=== PATIENT | female | born 1940 | race Caucasian/White ===

== ENCOUNTER 2022-01-01 05:22 | Day surgery (SDC) | payer MEDICARE, MEDICAID ==
[~2022-01-01] VITALS: Ht 156.7 cm; Wt 80.0 kg
[~2022-01-01 05:22] MED LIST: AMLO10TA55 PO; APIX2.5T PO; AZEL6DRO5 OU; CARV6 PO; CLOP75TA32 PO; GABA-529 PO; INSLAN SQ; LATA2.5D14 OU; LINA5TAB PO; MINO2.5 PO; OMEP20CA13 PO; SERT-158 PO; SEVE800T17 PO; SIMV-43 PO
[2022-01-01] MEDS ORDERED: SODIUM CHLORIDE 0.9% 1,000 ML IV ONE (05:30)
[2022-01-01] MEDS ORDERED: SODIUM CHLORIDE 0.9% 1,000 ML ONE (06:39)
[2022-01-01] MEDS ORDERED: DIAZEPAM 5 MG TABLET ONE (06:40)
[2022-01-01] MEDS ORDERED: ASPIRIN 81 MG CHEWABLE TABLET ONE (06:40)
[2022-01-01] MEDS ORDERED: DiphenhydrAMINE HCL 50 MG CAPSULE ONE (06:40)
[2022-01-01] MEDS ORDERED: IOHEXOL 300 MG/ML 100 ML VIAL ONE (07:16)
[2022-01-01] MEDS ORDERED: IOHEXOL 300 MG/ML 150 ML VIAL ONE (07:16)
[2022-01-01] MEDS ORDERED: LIDOCAINE/PF 1% 30 ML VIAL ONE (07:16)
[2022-01-01] MEDS ORDERED: IOHEXOL 300 MG/ML 50 ML VIAL ONE (07:16)
[2022-01-01] MEDS ORDERED: SODIUM BICARBONATE 50 MEQ/50 ML VIAL ONE (07:16)
[2022-01-01] MEDS ORDERED: HEPARIN SODIUM 1000 UNITS/NS 1,000 ML ONE (07:17)
[2022-01-01 07:21] LABS: GLUCOMETER DEV NAME(LOC) SDS.; GLUCOSE,POINT OF CARE 152 MG/DL (70-110)
[2022-01-01] MEDS ORDERED: ASPIRIN 81 MG CHEWABLE TABLET PO ONE (07:30)
[2022-01-01] MEDS ORDERED: DIAZEPAM 5 MG TABLET PO ONE (07:30)
[2022-01-01] MEDS ORDERED: DiphenhydrAMINE HCL 50 MG CAPSULE PO ONE (07:30)
[2022-01-01 07:42] VITALS: BP 113/43
[2022-01-01] MEDS ORDERED: FentaNYL CITRATE PF 100 MCG/2 ML VIAL ONE (07:51)
[2022-01-01] MEDS ORDERED: MIDAZOLAM HCL 2 MG/2 ML VIAL ONE (07:51)
[2022-01-01] MEDS ORDERED: MIDAZOLAM HCL 2 MG/2 ML VIAL IVP ONE ×2 (08:30→09:00)
[2022-01-01] MEDS ORDERED: LIDOCAINE 1% 30 ML/SOD BICARB 8.4% 4 ML SQ ONE (08:30)
[2022-01-01] MEDS ORDERED: FentaNYL CITRATE PF 100 MCG/2 ML VIAL IVP ONE ×2 (08:30→09:00)
[2022-01-01] MEDS ORDERED: HEPARIN SODIUM 1000 UNITS/NS 1,000 ML IARTER ONE (08:30)
[2022-01-01] MEDS ORDERED: IOHEXOL 300 MG/ML 150 ML VIAL IARTER ONE (08:30)
[2022-01-01] MEDS ORDERED: PHENYLEPHRINE 200 MG/D5%-WATER 0 ML IV ONE (08:34)
[2022-01-01] MEDS ORDERED: TICAGRELOR 90 MG TABLET ONE ×2 (08:41→15:12)
[2022-01-01] MEDS ORDERED: HEPARIN SODIUM,PORCINE 5,000 UNITS/ML VIAL IVP ONE ×3 (08:45→09:30)
[2022-01-01] MEDS ORDERED: HEPARIN SODIUM 1000 UNITS/NS 500 ML ONE (08:47)
[2022-01-01 09:10] VITALS: BP 109/52
[2022-01-01] MEDS ORDERED: TICAGRELOR 90 MG TABLET PO ONE ×2 (09:15→16:00)
== END 2022-01-01 16:05 | disposition home or self-care (01) ==
LOC: CATHLAB 05:22
PROVIDERS: ATTEND Internal Medicine Interventional Cardiology
DX: I25.10 Atherosclerotic heart disease of native coronary artery without angina pectoris (principal); I12.9 Hypertensive chronic kidney disease with stage 1 through stage 4 chronic kidney disease, or unspecified chronic kidney disease; E11.22 Type 2 diabetes mellitus with diabetic chronic kidney disease; E11.51 Type 2 diabetes mellitus with diabetic peripheral angiopathy without gangrene; E78.5 Hyperlipidemia, unspecified; E66.9 Obesity, unspecified; N18.9 Chronic kidney disease, unspecified; I48.91 Unspecified atrial fibrillation; Z86.73 Personal history of transient ischemic attack (TIA), and cerebral infarction without residual deficits; Z90.710 Acquired absence of both cervix and uterus; Z98.890 Other specified postprocedural states; Z79.899 Other long term (current) drug therapy; Z88.0 Allergy status to penicillin
CPT/HCPCS: 82962; 92978; 93458; 99152; 99153; C1753; C1757; C1760; C1874; C1887; C9600; J1644; J2250; J3010; J3490 ×2; J7030; Q9967 ×3; 75960; 92928; J2370

== ENCOUNTER 2023-11-06 07:43 | Inpatient (IN) | payer MEDICARE, OTHER ==
[2023-11-06] VITALS (14 sets, daily range): BP systolic 105–145; BP diastolic 49–88; PULSE 61–96; RESP 20–23; TEMP 98.1–98.8
[~2023-11-06] VITALS: Ht 157.5 cm; Wt 70.8 kg
[~2023-11-06 07:43] MED LIST changes: +ASPIRIN 81 MG CHEWABLE TABLET PO ONE; -CLOP75TA32 PO; +DIAZEPAM 5 MG TABLET PO ONE; +DiphenhydrAMINE HCL 50 MG CAPSULE PO ONE; +MEGE40TA8 PO; -SEVE800T17 PO; +SEVE800T38 PO; +SODIUM CHLORIDE 0.9% 1,000 ML IV ONE; +TICA60TA PO; +TRAZ-252 PO
[2023-11-06] MEDS ORDERED: ASPIRIN 81 MG CHEWABLE TABLET ONE (09:58)
[2023-11-06] MEDS ORDERED: DiphenhydrAMINE HCL 50 MG CAPSULE ONE (09:58)
[2023-11-06] MEDS ORDERED: SODIUM CHLORIDE 0.9% 1,000 ML ONE (09:58)
[2023-11-06] MEDS ORDERED: DIAZEPAM 5 MG TABLET ONE (09:58)
[2023-11-06 11:41] LABS: GLUCOMETER DEV NAME(LOC) SDS.; GLUCOSE,POINT OF CARE 221 MG/DL (70-110)
[2023-11-06] MEDS ORDERED: LIDOCAINE/PF 1% 30 ML VIAL ONE (11:56)
[2023-11-06] MEDS ORDERED: SODIUM BICARBONATE 50 MEQ/50 ML VIAL ONE (11:56)
[2023-11-06] MEDS ORDERED: IOHEXOL 300 MG/ML 100 ML VIAL ONE (11:57)
[2023-11-06] MEDS ORDERED: FentaNYL CITRATE PF 100 MCG/2 ML VIAL ONE (12:03)
[2023-11-06] MEDS ORDERED: MIDAZOLAM HCL 2 MG/2 ML VIAL ONE (12:12)
[2023-11-06] MEDS ORDERED: IOHEXOL 300 MG/ML 100 ML VIAL ICOR ONE (12:30)
[2023-11-06] MEDS ORDERED: LIDOCAINE 1% 30 ML/SOD BICARB 8.4% 4 ML SQ ONE (12:30)
[2023-11-06] MEDS ORDERED: HEPARIN SODIUM 2,000 UNITS in HEPARIN SODIUM 1000 UNITS/NS 1,000 ML IARTER ONE (12:30)
[2023-11-06] MEDS ORDERED: HEPARIN SODIUM,PORCINE 1,000 UNITS/ML 10 ML VIAL ICOR ONE (12:45)
[2023-11-06] MEDS ORDERED: MIDAZOLAM HCL 2 MG/2 ML VIAL IVP ONE (12:45)
[2023-11-06] MEDS ORDERED: FentaNYL CITRATE PF 100 MCG/2 ML VIAL IVP ONE (12:45)
[2023-11-06] MEDS ORDERED: HEPARIN SODIUM,PORCINE 1,000 UNITS/ML 10 ML VIAL IVP ONE ×2 (12:45→13:15)
[2023-11-06] MEDS ORDERED: CLOPIDOGREL BISULFATE 300 MG TABLET ONE (13:28)
[2023-11-06] MEDS ORDERED: ASPIRIN 325 MG TABLET ONE (13:28)
[2023-11-06] MEDS ORDERED: CLOPIDOGREL BISULFATE 300 MG TABLET PO ONE (13:30)
[2023-11-06] MEDS ORDERED: ASPIRIN 325 MG TABLET PO ONE (13:30)
[2023-11-06] MEDS ORDERED: ACETAMINOPHEN 325 MG TABLET PO PRN (17:45)
[2023-11-06] MEDS ORDERED: BISACODYL 10 MG RECTAL RECTAL SUPPOSITORY PR PRN (17:45)
[2023-11-06] MEDS ORDERED: HYDROCODONE/ACETAMINOPHEN 5-325 MG TABLET PO PRN (17:45)
[2023-11-06] MEDS ORDERED: IPRATROPIUM BROMIDE 0.5 MG/2.5 ML NEB SOLUTION NEB PRN (17:45)
[2023-11-06] MEDS ORDERED: ALBUTEROL SULFATE 2.5 MG/0.5 ML NEB SOLUTION NEB PRN (17:45)
[2023-11-06] MEDS ORDERED: ONDANSETRON HCL 4 MG/2 ML VIAL IVP PRN (17:45)
[2023-11-06] MEDS ORDERED: MAGNESIUM HYDROXIDE SUSPENSION 30 ML UDCUP PO PRN (17:45)
[2023-11-06] MEDS ORDERED: MORPHINE SULFATE 2 MG/ML SYRINGE IVP PRN (17:45)
[2023-11-06] MEDS ORDERED: ZOLPIDEM TARTRATE 5 MG TABLET PO PRN (17:45)
[2023-11-06] MEDS ORDERED: LATANOPROST 0.005% 2.5 ML OPHTHALMIC SOLUTION OU SCH (21:00)
[2023-11-06] MEDS ORDERED: TraZODone HCL 50 MG TABLET PO SCH (21:00)
[2023-11-06] MEDS ORDERED: [UNRECOGNIZED DRUG - OTHER] OU SCH (21:00)
[2023-11-06] MEDS ORDERED: SIMVASTATIN 20 MG TABLET PO SCH (21:00)
[2023-11-06] MEDS: MINOXIDIL 2.5 MG TABLET PO SCH (21:06)
[2023-11-06] MEDS: CARVEDILOL 6.25 MG TABLET PO SCH (21:06)
[2023-11-06] MEDS: GABAPENTIN 100 MG CAPSULE PO SCH (21:06)
[2023-11-06] MEDS: SEVELAMER CARBONATE 800 MG TABLET PO SCH (21:06)
[2023-11-06] MEDS: APIXABAN 2.5 MG TABLET PO SCH (21:07)
[2023-11-07 03:41] VITALS: BP 142/62; PULSE 88; RESP 20; TEMP 97.8
[2023-11-07 07:04] LABS: BASOPHILS % (AUTO) 1.9 % (0.0-2.0); EOSINOPHILS % (AUTO) 4.4 % (1.0-6.0); HEMATOCRIT 28.1 % (36-46); HEMOGLOBIN 9.5 g/dL (12.0-16.0); LYMPHOCYTES # (AUTO) 0.5 K/uL (1.0-4.8); LYMPHOCYTES % (AUTO) 13.1 % (22.0-44.0); MEAN CORPUSCULAR HEMOGLOBIN 34.8 pg (26.0-34.0); MEAN CORPUSCULAR HGB CONC 33.7 G/dL (31.0-37.0); MEAN CORPUSCULAR VOLUME 103 fL (80-100); MONOCYTES # (AUTO) 0.2 K/uL (0.1-1.0); MONOCYTES % (AUTO) 5.6 % (2.0-9.0); NEUTROPHILS # (AUTO) 2.7 K/uL (1.8-7.7); PLATELET COUNT (AUTO) 103 K/uL (150-450); RED BLOOD CELL COUNT(AUTO) 2.73 MIL/uL (4.00-5.20); RED CELL DISTRIBUTION WIDTH 17.3 % (11.5-14.5); WHITE BLOOD COUNT (AUTO) 3.6 K/uL (4.5-11.0)
[2023-11-07 07:32] VITALS: BP 152/69; PULSE 75; RESP 18; TEMP 97.5
[2023-11-07 07:52] LABS: ALBUMIN 3.3 g/dL (3.4-5.0); BILIRUBIN,TOTAL 0.8 mg/dL (0.1-1.0); CALCIUM, TOTAL 9.3 mg/dL (8.8-10.5); CREATININE 4.73 mg/dL (0.60-1.30); POTASSIUM 4.3 mmol/L (3.5-5.1); TOTAL PROTEIN, SERUM 6.7 g/dL (6.4-8.2)
[2023-11-07] MEDS: CARVEDILOL 6.25 MG TABLET PO SCH (08:13)
[2023-11-07] MEDS: APIXABAN 2.5 MG TABLET PO SCH (08:13)
[2023-11-07] MEDS: SEVELAMER CARBONATE 800 MG TABLET PO SCH (08:15)
[2023-11-07] MEDS: MINOXIDIL 2.5 MG TABLET PO SCH (08:16)
[2023-11-07] MEDS: GABAPENTIN 100 MG CAPSULE PO SCH (08:16)
[2023-11-07] MEDS ORDERED: CLOPIDOGREL BISULFATE 75 MG TABLET PO SCH (09:00)
[2023-11-07] MEDS ORDERED: MEGESTROL ACETATE 40 MG TABLET PO SCH (09:00)
[2023-11-07] MEDS ORDERED: SERTRALINE HCL 50 MG TABLET PO SCH (09:00)
[2023-11-07] MEDS ORDERED: LinaGLIPtin 5 MG TABLET PO SCH (09:00)
[2023-11-07] MEDS ORDERED: AmLODIPine BESYLATE 10 MG TABLET PO SCH (09:00)
[2023-11-07] MEDS ORDERED: TICAGRELOR 60 MG TABLET PO SCH (09:00)
[2023-11-07] MEDS ORDERED: PANTOPRAZOLE SODIUM 40 MG DR TABLET PO SCH (09:00)
[2023-11-07 09:16] LABS: RBC MORPHOLOGY COMMENT ABNORMAL RBC MORPH
[2023-11-07] MEDS ORDERED: CALCITRIOL 0.25 MCG CAPSULE PO SCH (09:45)
[2023-11-07] MEDS ORDERED: EPOETIN ALFA 10,000 UNITS/ML 2 ML VIAL SQ SCH (10:00)
[2023-11-07 11:57] VITALS: BP 114/49; PULSE 78; RESP 18; TEMP 97.1
[2023-11-07] MEDS ORDERED: CLOP75TA60 PO (14:27)
[2023-11-07] MEDS ORDERED: CINACALCET HCL 30 MG TABLET PO SCH (18:00)
== END 2023-11-07 16:45 | disposition home or self-care (01) | DRG 321 ==
LOC: CATHLAB 07:43 → 5N 07:44
PROVIDERS: ADMIT Hospitalist; ATTEND Hospitalist
PROC: 027035Z Dilation of Coronary Artery, One Artery with Two Drug-eluting Intraluminal Devices, Percutaneous Approach (ICD-10-PCS; principal; 2023-11-06)
PROC: 4A023N7 Measurement of Cardiac Sampling and Pressure, Left Heart, Percutaneous Approach (ICD-10-PCS; 2023-11-06)
PROC: B2111ZZ Fluoroscopy of Multiple Coronary Arteries using Low Osmolar Contrast (ICD-10-PCS; 2023-11-06)
PROC: B41F1ZZ Fluoroscopy of Right Lower Extremity Arteries using Low Osmolar Contrast (ICD-10-PCS; 2023-11-06)
DX: I25.10 Atherosclerotic heart disease of native coronary artery without angina pectoris (principal); N18.6 End stage renal disease; I12.0 Hypertensive chronic kidney disease with stage 5 chronic kidney disease or end stage renal disease; I69.351 Hemiplegia and hemiparesis following cerebral infarction affecting right dominant side; N25.81 Secondary hyperparathyroidism of renal origin; I27.20 Pulmonary hypertension, unspecified; I07.1 Rheumatic tricuspid insufficiency; E11.22 Type 2 diabetes mellitus with diabetic chronic kidney disease; D63.1 Anemia in chronic kidney disease; E11.51 Type 2 diabetes mellitus with diabetic peripheral angiopathy without gangrene; I48.91 Unspecified atrial fibrillation; F03.90 Unspecified dementia, unspecified severity, without behavioral disturbance, psychotic disturbance, mood disturbance, and anxiety; Z79.01 Long term (current) use of anticoagulants; Z95.0 Presence of cardiac pacemaker; Z99.2 Dependence on renal dialysis; Z88.3 Allergy status to other anti-infective agents; Z88.1 Allergy status to other antibiotic agents; Z88.2 Allergy status to sulfonamides; Z83.3 Family history of diabetes mellitus; Z88.0 Allergy status to penicillin; Z90.710 Acquired absence of both cervix and uterus; Z79.84 Long term (current) use of oral hypoglycemic drugs; Z79.899 Other long term (current) drug therapy; Z79.4 Long term (current) use of insulin
CPT/HCPCS: 71045; 80053; 82962; 85025; 93005; J0885; J2250; J3010; J3490; J7030; Q9967; 36415-L1; 36415-TC